=== PATIENT | male | born 1960 | race Caucasian/White ===

== ENCOUNTER 2018-06-10 08:19 | Emergency (ER) | payer OTHER ==
[2018-06-10 08:29] VITALS: TEMP 97.8; BMI 29.7
--- NOTE | 2018-06-10 08:30 | PDOC ---
History of Present Illness - General Chief Complaint: Chest Pain Stated Complaint: CHEST PAIN Time Seen by Provider: 06/10/18 08:30 History Source: Patient Exam Limitations: No Limitations - History of Present Illness Initial Comments: 06/10/18 08:46 HPI 58 YOM with h/o arthritis, former smoker presenting with right sided chest pain beginning 1 hour ago while driving to get coffee. he describes a constant, dull and achy right sided chest pain associated with shoulder and upper back pain, worse with movement and breathing. no similar sx in the past. no infectious sx or respiratory symptoms. Denies fever, chills, cough/congestion, SOB, palpitation, dizziness, weakness, paresthesias, AP, V, D, bladder and bowel problems, leg swelling, No sick contacts or travel. No new changes in medications. no exacerbating or alleviating factors. no trauma or strenuous activity. former smoker, occasional etoh use. no immobilization or long travel or surgeries recently. Allergies: NKA Past Medical History: arthritis, former smoker Social history: Lives with family. former longtime smoker. No alcohol. No illicit drugs. Surgical history: knee replacement, appendectomy ROS Constitutional: no fevers or chills. HEENT: no headache or dizziness. No congestion. No visual/hearing disturbances. CVS: +chest pain Resp: no sob. No cough. Gastrointestinal: no abdominal pain, nausea or vomiting. Genitourinary: no urinary sx, hematuria. MUSCULOSKELETAL: No joint pain and swelling. No neck pain. +back pain. SKIN: no redness or skin changes, no discharge, no rash. No wounds. Hematologic: no easy bruising/bleeding. NEUROLOGIC: No headache, dizziness, LOC or altered mental status. No focal weakness, numbness or tingling. Allergic/Immunologic: no allergies All other systems reviewed and negative, or as documented in HPI. PE: General: Well appearing, awake and alert, NAD. HEENT: NCAT, PERRL, EOMI, clear conjunctiva, anicteric, moist mucus membranes, clear oropharynx, no oral lesions.. Neck: neck supple, FROM Resp: CTAB, normal and even respirations, no respiratory distress Chest: right sided chest wall TTP. no crepitus, CVS: RRR, no murmurs, 2+ peripheral pulses throughout, no peripheral edema Abdomen: soft, NTND, no peritoneal signs. no CVAT. Back: nontender, normal inspection and ROM MSK: no edema, LYNN x4, ROM intact. No clubbing or cyanosis. normal bulk and tone. 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 Skin: warm and well perfused, cap refill <2 sec, normal color Past History - Past Medical History Allergies/Adverse Reactions: Allergies Allergy/AdvReac Type Severity Reaction Status Date / Time No Known Allergies Allergy Verified 06/10/18 08:20 Home Medications: Ambulatory Orders NK [No Known Home Medication] 06/10/18 COPD: No Kidney Stones: Yes - Surgical History Appendectomy: Yes - Suicide/Smoking/Psychosocial Hx Smoking Status: Yes Smoking History: Former smoker Have you smoked in the past 12 months: Yes Number of Cigarettes Smoked Daily: 20 Information on smoking cessation initiated: Yes Hx Alcohol Use: No Drug/Substance Use Hx: No *Physical Exam - Vital Signs Last Vital Signs Temp Pulse Resp BP Pulse Ox 97.8 F 57 L 20 107/76 100 06/10/18 11:58 06/10/18 11:58 06/10/18 11:58 06/10/18 11:58 06/10/18 11:58 Heart Score/ECG Review - History History: Slightly suspicious - Electrocardiogram EKG: Non specific repolarization disturbance - Age Age: 45-65 - Risk Factors Risk Factors Heart Score: Yes Smoking History Based on the list above the patient has:: 1-2 risk factors - Troponin Troponin: </= normal limit - Score Heart Score - Total: 3 #1 ECG reviewed & interpreted by me at: 08:25 General ECG Interpretation: Sinus Rhythm Compared to previous ECG there are: Previous ECG unavail 06/10/18 08:54 EKG sinus bradycardia 56 bpm, no interval abnormalities, narrow QRS, ST and T wave segments and morphology normal. Nonspecific T wave abnormalities - no prior Moderate Sedation - Procedure Monitoring Vital Signs: Procedure Monitoring Vital Signs Temperature 97.8 F 06/10/18 11:58 Pulse Rate 57 L 06/10/18 11:58 Respiratory Rate 20 06/10/18 11:58 Blood Pressure 107/76 06/10/18 11:58 O2 Sat by Pulse Oximetry (%) 100 06/10/18 11:58 ED Treatment Course - LABORATORY CBC & Chemistry Diagram: 06/10/18 09:25 06/10/18 09:25 - ADDITIONAL ORDERS Additional order review: Laboratory Results 06/10/18 06/10/18 06/10/18 12:01 09:25 09:25 D-Dimer < 215 Sodium Potassium Chloride Carbon Dioxide Anion Gap BUN Creatinine Creat Clearance w eGFR Random Glucose Calcium Magnesium Total Bilirubin AST ALT Alkaline Phosphatase Troponin I < 0.03 < 0.03 Total Protein Albumin 06/10/18 09:25 D-Dimer Sodium 135 L Potassium 4.9 Chloride 99 Carbon Dioxide 29 Anion Gap 7 L BUN 15 Creatinine 0.7 Creat Clearance w eGFR 116.66 Random Glucose 93 Calcium 9.6 Magnesium 1.9 Total Bilirubin 1.8 H AST 40 H ALT 31 Alkaline Phosphatase 42 L Troponin I Total Protein 6.5 Albumin 4.0 06/10/18 09:25 RBC 5.13 MCV 91.0 MCHC 32.5 RDW 12.6 MPV 9.4 Neutrophils % 50.8 D Lymphocytes % 33.4 D Monocytes % 9.5 Eosinophils % 4.4 D Basophils % 1.9 - RADIOLOGY Radiology Studies Ordered: Category Date Time Status CHEST PA & LAT [RAD] Stat Radiology 06/10/18 08:31 Completed - Medications Given in the ED: ED Medications Discontinued Medications Generic Name Dose Route Start Last Admin Trade Name Freq PRN Reason Stop Dose Admin Ibuprofen 600 mg 06/10/18 09:40 06/10/18 09:44 Motrin - PO 06/10/18 09:41 600 mg ONCE ONE Administration Medical Decision Making - Medical Decision Making 06/10/18 08:46 See HPI for details DDx includes ACS, angina, chest pain NOS, costochondritis, GERD, pleurisy, anxiety, esophageal spasm, zoster. low clinical suspicion pulmonary embolism or dissection. Vital signs reviewed, wnl. mild bradycardia ~60 bpm. Prior notes reviewed, including admissions, discharges and consultations. laboratory results and imaging reviewed, basic labs and lytes wnl, - dimer neg, so less likely PE or aortic dissection, no sob/ VS wnl with mild bradycardia, no neuro deficits to suggest cardiovascular or cva etiology. CXR_no acute chest pathology, similar appearance to prior. Cardiac panel_neg trop x2, less likely cardiac/ischemic. EKG sinus bradycardia 56 bpm, no interval abnormalities, narrow QRS, ST and T wave segments and morphology normal. Nonspecific T wave abnormalities - no prior ED course: on tele monitor, sinus bradycardia. no events, does increase >60 bpm. - heart score 2 - former smoker (quit ~3 months ago), low risk chest pain for MACE, <1.7% at 30d. atypical sx noted, right sided, reproducibility. given analgesia. feels much improved after motrin caution on rash development in ensuing 3 days in case of pain before rash on right side of chest. ambulatory, no complaints of pain. feels better and eager for discharge. dispo: Pt and family informed of my clinical impression, treatment recommendations and disposition plan. All questions answered to patient's satisfaction and expressed understanding and comfort with this. Reasons for returning to the ED sooner discussed with the patient otherwise, follow up with primary care physician. At the time of discharge, the patient is alert, clinically improved, tolerating po and verbalizes understanding of instructions. Patient does not suffer from an acute life-threatening medical condition at this time she is safe for outpatient follow-up. 06/10/18 10:19 06/10/18 11:52 06/10/18 12:38 06/10/18 12:59 *DC/Admit/Observation/Transfer Diagnosis at time of Disposition: Chest pain Qualifiers: Chest pain type: unspecified Qualified Code(s): R07.9 - Chest pain, unspecified - Discharge Dispostion Disposition: HOME Condition at time of disposition: Improved Decision to Admit order: No - Referrals Referrals: Bryce Frias MD [Staff Physician] - - Patient Instructions Printed Discharge Instructions: DI for Atypical Chest Pain, DI for Chest Pain Additional Instructions: 1) Please follow-up with your primary care doctor in the next 1-2 days. Please call tomorrow for an appointment. If you cannot follow-up with your primary care doctor please return to the ED for any urgent issues. 2) You were given a copy of the tests performed today. Please bring the results with you and review them with your primary care doctor. Your laboratory / imaging results were normal, including markers for your heart, blood clots and cardiovascular issues. 3) If you have any worsening of symptoms or any other concerns please return to the ED immediately. Return if worsening symptoms including fevers, headache, vomiting, visual or hearing disturbances, abdominal pain, chest pain, shortness of breath, syncope, dehydration, inability to take things by mouth/vomiting, altered mental status, or worsening concerning symptoms. monitor for development of rash on right side of chest in ensuing 3 days that could indicate shingles 4) Please continue taking your home medications as directed. your medications on discharge include motrin/tylenol as needed . side effects may include upset stomach, abdominal pain, vomiting, or diarrhea. do not drink alcohol with your medications. Please take IBUPROFEN (aka MOTRIN, ADVIL, ALEVE) 400 mg and/or ACETAMINOPHEN ( aka Tylenol) 650-975 mg every 6 hours, as needed, for pain. Please do not take these medications if you have a bleeding disorder, stomach or GI ulcer problems or liver disease. Stay well hydrated and rest adequately. - Post Discharge Activity
[2018-06-10] MEDS ORDERED: IBUPROFEN 600 MG TABLET (FP) PO ONE ×2 (09:40→09:43)
[2018-06-10 09:42] LABS: BASO % 1.9 % (0-2.0); EOS % 4.4 % (0-4.5); HEMATOCRIT 46.7 % (35.4-49); HEMOGLOBIN 15.2 GM/dl (11.7-16.9); LYMPH % 33.4 % (8-40); MCH 29.6 pg (25.7-33.7); MCHC 32.5 g/dl (32.0-35.9); MEAN PLT VOLUME 9.4 fl (7.5-11.1); MONO % 9.5 % (3.8-10.2); NEUT % 50.8 % (42.8-82.8); PLATELET COUNT 208 K/MM3 (134-434); RBC 5.13 M/mm3 (4.00-5.60); RDW 12.6 % (11.9-15.9); WHITE BLOOD COUNT 4.9 K/mm3 (4.0-10.8)
[2018-06-10 10:01] LABS: ALK PHOS 42 U/L (45-117); ANION GAP 7 MMOL/L (8-16); BILIRUBIN,TOTAL 1.8 mg/dl (0.2-1); BLOOD UREA NITROGEN 15 mg/dl (7-18); CALCIUM 9.6 mg/dl (8.5-10); CHLORIDE 99 mmol/L (98-107); CO2 29 mmol/L (21-32); CREATININE 0.7 mg/dl (0.55-1.3); GLUCOSE,RANDOM 93 mg/dl (74-106); MAGNESIUM 1.9 mg/dL (1.8-2.4); POTASSIUM 4.9 mmol/L (3.5-5.1); SGOT/AST 40 U/L (15-37); SGPT/ALT 31 U/L (13-61); SODIUM 135 mmol/L (136-145); TOT PROT 6.5 g/dl (6.4-8.2)
--- NOTE | 2018-06-10 10:59 | EKG ---
Test Reason : Blood Pressure : / mmHG Vent. Rate : 056 BPM Atrial Rate : 056 BPM P-R Int : 190 ms QRS Dur : 092 ms QT Int : 408 ms P-R-T Axes : 052 068 -31 degrees QTc Int : 393 ms SINUS BRADYCARDIA NONSPECIFIC T WAVE ABNORMALITY ABNORMAL ECG NO PREVIOUS ECGS AVAILABLE Confirmed by MD LITA, CRIS ([id number]) on 06/10/2018 10:58:48 AM Referred By: LOPEZ Confirmed By:CRIS LONDON MD
[2018-06-10 12:01] VITALS: BP 107/76; PULSE 57
== END 2018-06-10 12:48 | disposition home or self-care (01) ==
LOC: FER 08:19
DX: R07.9 Chest pain, unspecified (principal); Z87.891 Personal history of nicotine dependence; Z87.442 Personal history of urinary calculi
CPT/HCPCS: 36415; 71046-TC-FY; 80053; 83735; 84484; 85025; 85379; 93005; 99284-25